=== PATIENT | female | born 1965 | race Caucasian/White ===

== ENCOUNTER → 2017-12-27 | Outpatient (CLI) | payer OTHER ==
[~2017-12-27] MED LIST: CYMBALTA60 MG PO; DEXILANT60 MG PO; HARD NAILS2500 MCG PO; HYCET 7.5 MG-3473 ML PO; KLONOPIN1 MG PO; LESCOL XL80 MG PO; REQUIP XL2 MG PO; TOPAMAX 100 MG100 MG PO; ZOFRAN ODT4 MG DISSOLVE
== END ==
LOC: RAD 07:50
DX: K21.9 Gastro-esophageal reflux disease without esophagitis (principal)

== ENCOUNTER → 2018-01-21 | Outpatient (CLI) | payer OTHER ==
--- NOTE | ~2018-01-21 | O ---
[facility] [place] [address] OPERATIVE REPORT Name: ASHANTI FOSTER Room #: REG [facility]#: [id number] Admission: 01/21/18 Attend Phys: Va Gaxiola MD, Discharge: Date of : 65 Report #: [id number] THIS REPORT FOR: //name// CC: Hugo Gaxiola DATE OF SERVICE: 01/21/2018 PREOPERATIVE DIAGNOSES: 1. Gastroesophageal reflux disease. 2. History of laparoscopic sleeve gastrectomy. POSTOPERATIVE DIAGNOSES: 1. Gastroesophageal reflux disease without esophagitis. 2. Small hiatal hernia. 3. History of laparoscopic sleeve gastrectomy. PROCEDURE PERFORMED: Thorough esophagogastroduodenoscopy (EGD). SURGEON: Va Gaxiola M.D. WAGE AND SALARY SPECIALIST: None. ANESTHESIA: Monitored anesthesia care. ESTIMATED BLOOD LOSS: None. COMPLICATIONS: None. SPECIMENS: None. INDICATIONS: The patient is a 52-year-old female who underwent a laparoscopic sleeve gastrectomy for morbid obesity and weight loss with resolution of comorbid conditions over a year and a half ago. The patient has had excellent weight loss; however, has had medically recalcitrant reflux disease since that time. The patient was initially managed quite well with PPI therapy, but lately her symptoms have been medically recalcitrant and as such, indication was for the above-mentioned procedure today. DESCRIPTION OF PROCEDURE: After explaining the risks, benefits and alternatives of the procedure with the patient in detail, in the preoperative holding area and obtaining written consent, the patient was brought to the endoscopy suite supine on the hospital cart. After conducting a thorough timeout procedure verifying correct patient and procedure, the patient was given monitored anesthesia care. Once adequate anesthesia was attained, the [facility] upper endoscope was used to intubate the oropharynx. This was traversed down to the [facility] [address] [place] [address] OPERATIVE REPORT Name: ASHANTI FOSTER Jaime [id number] Admission: 01/21/18 Attend Phys: Va Gaxiola MD, Discharge: Date of : 65 Report #: [id number] esophagus and into the gastric lumen where the pylorus was identified and intubated. The scope was advanced to the second portion of duodenum where slow careful withdrawal of the scope showed no evidence of duodenitis, gastritis, esophagitis, mass lesions or ulcerations. I was unable to do a retroflexion view up high within the gastric lumen; however, I was able to perform this in the gastric antrum. I saw no evidence of pathology. As the scope was slowly withdrawn into the distal esophagus and superior stomach, we did see evidence of a small hiatal hernia as well as a patulous lower esophageal sphincter. This completed the procedure and after fully desufflating the stomach and esophagus, the scope was removed and passed off the field completing the procedure. At the end of the procedure, all instrument, needle and sponge counts were correct. The patient tolerated the procedure without incident, was awakened in the endoscopy suite and transitioned to the recovery room in stable condition with no apparent complications. <ELECTRONICALLY SIGNED> By: Va Gaxiola MD, FACS 01/22/18 [id number] Va Gaxiola MD, FACS /nt
== END | disposition home or self-care (01) ==
LOC: GI 06:30
DX: K21.9 Gastro-esophageal reflux disease without esophagitis (principal); K44.9 Diaphragmatic hernia without obstruction or gangrene; Z90.3 Acquired absence of stomach [part of]; Z88.2 Allergy status to sulfonamides; Z79.899 Other long term (current) drug therapy; Z79.891 Long term (current) use of opiate analgesic
CPT/HCPCS: 62110; 62900

== ENCOUNTER → 2018-10-01 | Outpatient (CLI) | payer OTHER | LOC: RAD 07:47 | DX: K21.9 Gastro-esophageal reflux disease without esophagitis (principal); Z98.890 Other specified postprocedural states; Z87.19 Personal history of other diseases of the digestive system ==